=== PATIENT | male | born 1980 | race Caucasian/White ===

== ENCOUNTER 2017-07-31 16:46 | Emergency (ER) | payer MEDICAID ==
[~2017-07-31] VITALS: Ht 170.2 cm; Wt 86.4 kg
[2017-07-31] MEDS ORDERED: PERTUSS(ACELL),DIPH,TET VAC/PF 0.5 ML VIAL IM ONE (17:15)
[2017-07-31] MEDS ORDERED: SODIUM CHLORIDE 0.9% 1,000 ML IV ONE (17:15)
[2017-07-31] MEDS ORDERED: ONDANSETRON HCL 4 MG/2 ML VIAL IVP ONE (17:15)
[2017-07-31] MEDS ORDERED: MORPHINE SULFATE 4 MG/ML SYRINGE IVP ONE (17:15)
[2017-07-31] MEDS ORDERED: SODIUM CHLORIDE 0.9% 250 ML IRRIG SOLUTION BOTTLE IRRIG ONE (17:15)
[2017-07-31 17:20] LABS: BASOPHILS % (AUTO) 0.5 % (0.0-2.0); EOSINOPHILS % (AUTO) 1.9 % (1.0-6.0); HEMOGLOBIN 14.2 g/dL (13.5-17.5); LYMPHOCYTES # (AUTO) 2.9 K/uL (1.0-4.8); LYMPHOCYTES % (AUTO) 37.9 % (22.0-44.0); MEAN CORPUSCULAR HEMOGLOBIN 27.8 pg (26.0-34.0); MEAN CORPUSCULAR HGB CONC 34.6 G/dL (31.0-37.0); MEAN CORPUSCULAR VOLUME 80 fL (80-100); MONOCYTES # (AUTO) 0.8 K/uL (0.1-1.0); MONOCYTES % (AUTO) 9.9 % (2.0-9.0); NEUTROPHILS # (AUTO) 3.8 K/uL (1.8-7.7); NEUTROPHILS % (AUTO) 49.8 % (40.0-70.0); PLATELET COUNT (AUTO) 205 K/uL (150-450); RED CELL DISTRIBUTION WIDTH 13.6 % (11.5-14.5)
[2017-07-31 17:28] LABS: ANION GAP 8 mmol/L (8-16); CALCIUM, TOTAL 8.4 mg/dL (8.8-10.5); CARBON DIOXIDE 29 mmol/L (22-29); CHLORIDE 104 mmol/L (98-107); CREATININE 1.32 mg/dL (0.60-1.30); GLOMERULAR FILTR. RATE CALC > 60 mL/min (>60); GLUCOSE,RANDOM 105 mg/dL (70-110); POTASSIUM 4.1 mmol/L (3.5-5.1); SODIUM SERUM 141 mmol/L (136-145); UREA NITROGEN, BLOOD 21 mg/dL (7-18)
[2017-07-31 17:32] LABS: PROTHROMBIN TIME 10.3 SEC (9.4-11.6)
[2017-07-31 17:36] LABS: ALANINE AMINOTRANSFERASE 41 U/L (12-78); ALBUMIN 4.1 g/dL (3.4-5.0); ALKALINE PHOSPHATASE 97 U/L (46-116); ASPARTATE AMINOTRANSFERASE 27 U/L (15-37); BILIRUBIN,TOTAL 0.6 mg/dL (0.1-1.0); TOTAL PROTEIN, SERUM 7.7 g/dL (6.4-8.2)
[2017-07-31] MEDS ORDERED: LIDOCAINE HCL 2%/EPI 1:200,000/PF 20 ML VIAL INJ ONE (18:30)
[2017-07-31] MEDS ORDERED: BACITRACIN 0.9 GM PACKET OINTMENT TP ONE (20:00)
[2017-07-31] MEDS ORDERED: HYDROCODONE/ACETAMINOPHEN 5-325 MG TABLET PO ONE (20:00)
[2017-07-31] MEDS ORDERED: CeFAZolin 1 GM/DEXTROSE 50 ML IV ONE (20:00)
[2017-07-31 20:46] VITALS: BP 123/72
== END 2017-07-31 20:49 | disposition home or self-care (01) ==
LOC: EMS 16:47
DX: S71.112A Laceration without foreign body, left thigh, initial encounter (principal); W31.2XXA Contact with powered woodworking and forming machines, initial encounter; Y93.89 Activity, other specified; Y92.89 Other specified places as the place of occurrence of the external cause; Y99.8 Other external cause status
CPT/HCPCS: 12034; 36415; 73552; 80053; 85025; 85610; 85730; 86850; 86900; 86901; 90471; 90715; 96365; 96375; 99285; J0690; J2270; J2405; J7030; X6474; 12004

== ENCOUNTER 2017-08-08 11:47 | Emergency (ER) | payer MEDICAID ==
[~2017-08-08] VITALS: Ht 172.7 cm; Wt 85.0 kg
[2017-08-08 13:27] VITALS: BP 144/88
== END 2017-08-08 13:27 | disposition home or self-care (01) ==
LOC: EMS 11:48
DX: S71.112D Laceration without foreign body, left thigh, subsequent encounter (principal); X58.XXXD Exposure to other specified factors, subsequent encounter
CPT/HCPCS: 99281

== ENCOUNTER 2019-12-10 01:04 | Emergency (ER) | payer MEDICAID, OTHER ==
[~2019-12-10] VITALS: Ht 177.8 cm; Wt 88.0 kg
[2019-12-10] MEDS ORDERED: LIDOCAINE 1% 10 ML VIAL INJ ONE (01:45)
[2019-12-10] MEDS ORDERED: BACITRACIN 0.9 GM PACKET OINTMENT TP ONE (01:45)
[2019-12-10 02:15] VITALS: BP 129/81
== END 2019-12-10 02:30 | disposition home or self-care (01) ==
LOC: EMS 01:04
DX: S01.111A Laceration without foreign body of right eyelid and periocular area, initial encounter (principal); W18.09XA Striking against other object with subsequent fall, initial encounter; Y93.89 Activity, other specified; Y92.89 Other specified places as the place of occurrence of the external cause; Y99.8 Other external cause status
CPT/HCPCS: 12013; 99282; J3490

== ENCOUNTER 2019-12-18 20:32 | Emergency (ER) | payer OTHER ==
[~2019-12-18] VITALS: Ht 177.8 cm; Wt 86.4 kg
[2019-12-18 20:36] VITALS: BP 131/78
== END 2019-12-18 23:21 | disposition home or self-care (01) ==
LOC: EMS 20:32
DX: S01.111D Laceration without foreign body of right eyelid and periocular area, subsequent encounter (principal); X58.XXXD Exposure to other specified factors, subsequent encounter
CPT/HCPCS: Z7502

== ENCOUNTER 2021-03-26 12:43 | Emergency (ER) | payer OTHER ==
[~2021-03-26] VITALS: Ht 170.2 cm; Wt 77.3 kg
[2021-03-26 12:44] VITALS: BP 141/85
[2021-03-26] MEDS ORDERED: BUPIVACAINE HCL/PF 0.25% 10 ML VIAL PERC ONE (13:45)
== END 2021-03-26 14:26 | disposition home or self-care (01) ==
LOC: EMS 12:48
DX: S71.112A Laceration without foreign body, left thigh, initial encounter (principal); W27.0XXA Contact with workbench tool, initial encounter; Y93.89 Activity, other specified; Y92.89 Other specified places as the place of occurrence of the external cause; Y99.8 Other external cause status
CPT/HCPCS: 12002; 99282; J3490

== ENCOUNTER 2021-04-06 10:42 | Emergency (ER) | payer OTHER ==
[~2021-04-06] VITALS: Ht 172.7 cm; Wt 86.4 kg
[2021-04-06] MEDS ORDERED: BACITRACIN 0.9 GM PACKET OINTMENT TP ONE (11:15)
[2021-04-06 12:15] VITALS: BP 128/85
== END 2021-04-06 12:29 | disposition home or self-care (01) ==
LOC: EMS 10:45
DX: S71.112D Laceration without foreign body, left thigh, subsequent encounter (principal); Z48.02 Encounter for removal of sutures; W45.8XXD Other foreign body or object entering through skin, subsequent encounter
CPT/HCPCS: 99282; Z7502; Z7610